=== PATIENT | female | born 1960 | race Caucasian/White ===

== ENCOUNTER → 2023-09-09 14:01 | Outpatient (REF) | payer OTHER, SELFPAY | LOC: MRI 3T 14:01 | PROVIDERS: ATTENDING PHYSICIAN Physician Assistant Surgical; FAMILY PHYSICIAN Nurse Practitioner Adult Health | DX: M25.562 Pain in left knee (principal) | CPT/HCPCS: 73721 ==

== ENCOUNTER 2023-09-27 16:34 | Emergency (ER) | payer OTHER, SELFPAY ==
[2023-09-27 16:41] VITALS: BP 165/101
[2023-09-27 17:12] VITALS: BP 138/88
[2023-09-27 17:15] LABS: % Basophils 0.3 % (0-2); % Eosinophils 0.7 % (0-6); % Immature Granulocytes 0.3 % (0-0.5); % Lymphocytes 16.2 % (20.5-51.1); % Monocytes 8.6 % (1.7-9.3); % Neutrophils 73.9 % (42.2-75.2); Absolute Eosinophils 0.1 10^3/uL (0-0.7); Absolute Lymphocytes 1.9 10^3/uL (1.2-3.4); Absolute Neutrophils 8.7 10^3/uL (1.4-6.5); Hemoglobin 12.2 g/dL (12.0-16.0); Mean Corp Hgb Conc. 32.1 g/dL (33.0-37.0); Mean Corpuscular Hgb 27.3 pg (27.0-31.0); Mean Platelet Volume 8.9 fL (7.4-10.4); Nucleated Red Blood Cells % 0 %; Platelet Count 185 10^3/uL (130-400); Red Blood Cell Count 4.47 10^6/uL (4.20-5.40); Red Cell Dist. Width 16.2 % (11.5-14.5); White Blood Cell Count 11.7 10^3/uL (4.8-10.8)
[2023-09-27 17:24] LABS: ALT (SGPT) 26 U/L (0-35); AST (SGOT) 26 U/L (14-36); Albumin 4.2 g/dl (3.5-5.0); Blood Urea Nitrogen 12 mg/dl (7-17); Calcium 9.1 mg/dl (8.4-10.2); Carbon Dioxide 23 mmol/L (22-30); Chloride 102 mmol/L (98-107); Glucose 133 mg/dl (70-99); Potassium 3.8 mmol/L (3.5-5.1); Sodium 132 mmol/L (135-145); Total Bilirubin 0.9 mg/dl (0.2-1.3); Total Protein 6.9 g/dl (6.3-8.2); eGFR > 60.00
--- NOTE | 2023-09-27 17:36 | ED.GENMED ---
History of Present Illness
General
Chief Complaint: Chest Pain
Time Seen by Provider: 09/27/23 17:25
Travel History
Have you had any contact with someone who has COVID-19?: No
Do you have any symptoms of coronavirus? Fever > 100 degrees, chills, cough, shortness of breath, sore throat, loss of taste or smell, muscle aches, or headache?: No
History of Present Illness
History of Present Illness:
62-year-old female with history of A-fib not on Eliquis presents to the emergency department for evaluation of left-sided scapular and low thoracic back pain beginning yesterday when she woke up from a nap. Pain is worse when supine or when taking
a deep breath. She denies any recent fevers, chills, sweats, coughing, nausea, vomiting, or diarrhea. She was seen by her primary care physician and given 324 mg of aspirin before being referred to the emergency department. Has no prior history
of coronary artery disease but does have a strong family history of this. Non-smoker. Recently returned from a flight to [place]. Of note the patient is also currently wearing a left knee brace for meniscal injury.
Past History
Past History
ED Past Medical History: Negative Asthma, CAD or HTN
Review of Systems
Review of Systems
Allergies reviewed?: Yes
All Other Systems: ROS reviewed and negative except as documented in HPI and ROS
Phy Exam
Physical Exam
Physical Exam:
GEN: Well appearing, NAD, WDWN
Eyes: PERRLA, EOMs intact, no scleral icterus
HENT: NCAT, oral mucosa moist, no JVD, no cervical adenopathy.
Lungs: CTAB, no wheezes, rales, rhonchi, normal chest wall excursion
Cardiac: Tachycardic, regular, no M/R/G, no peripheral edema. Radial pulses 2+ bilat
Abdomen: S, NT, ND, NABS, no masses or hepatosplenomegaly
Neuro: AO x 3
MSK: No gross deformity or ecchymosis. No edema. No digital clubbing
Skin: No rashes, petechiae. Normal color, no pallor or jaundice.
Psych: Calm, cooperative, proper hygiene
Scores
Heart Score for Chest Pain Patients
STEMI patient?: Not applicable
PE Low Risk Score
Hemodynamically unstable?: No
Thrombolysis or embolectomy needed?: No
Active bleeding or high risk for bleeding?: No
>24hrs on supplemental O2 required to maintain SaO2 >90%?: No
PE diagnosed while on anticoagulation?: No
Severe pain needing IV medication required for >24 hours?: No
Medical or social reason for admission >24 hours?: No
Creatinine clearance < 30 mL/min by Cockcroft-Gault?: No
Severe liver impairment?: No
?: No
Documented hx of heparin-induced thrombocytopenia (HIT)?: No
High risk features on CT (or pulmonary angiogram/MRA)(confirm with echo if features seen)?: No
High risk features on echo, if performed?: No
High risk features on laboratory testing?: No
High risk features on lower extremity US, if performed?: No
High risk features on ECG (confirm with echo if features seen)?: No
Recommendations: Patient is considered low risk
Course
Orders/Labs/Results
Orders:
Orders
09/27/23 16:43
Electrocardiogram (*1) Urgent
Reason for Study: Chest Pain
EKG- Treatment ONCE
09/27/23 16:52
Complete Blood Count/With Diff Urgent
Comprehensive Metabolic Panel Urgent
Troponin I Urgent
09/27/23 17:33
CT Chest Pe Study Urgent
Comment:
Reason For Exam: pleuritic back/chest pain, tachycardia
09/27/23 17:54
HYDROmorphone [Dilaudid] 0.5 mg IV NOW STA
09/27/23 19:15
Apixaban [Eliquis] 10 mg PO NOW STA
09/27/23 19:55
Oxycodone [Roxicodone] 5 mg PO NOW STA
09/28/23 00:00
Apixaban [Eliquis] 10 mg PO BID
Abnormal Lab Results
09/27/23
16:52
WBC 11.7 H 10^3/uL
(4.8-10.8)
MCHC 32.1 L g/dL
(33.0-37.0)
RDW 16.2 H %
(11.5-14.5)
Absolute Neuts (auto) 8.7 H 10^3/uL
(1.4-6.5)
Absolute Monos (auto) 1.0 H 10^3/uL
(0.1-0.6)
Lymphocytes % 16.2 L %
(20.5-51.1)
Sodium 132 L mmol/L
(135-145)
Glucose 133 H mg/dl
(70-99)
09/27/23 16:52
09/27/23 16:52
Vital Signs
Initial and Last Documented VS:
Initial Vital Signs
Temp Pulse Resp BP Pulse Ox
98.3 F 115 18 165/101 95
09/27/23 16:41 09/27/23 16:41 09/27/23 16:41 09/27/23 16:41 09/27/23 16:41
Last Documented Vital Signs
Temp Pulse Resp BP Pulse Ox
98.3 F 104 18 131/78 96
09/27/23 16:41 09/27/23 20:00 09/27/23 20:00 09/27/23 20:00 09/27/23 19:45
MDM/Problems Addressed
MDM/Problems Addressed:
Patient identified to have a distal subsegmental pulmonary embolism with associated pulmonary infarct which is likely driving her pain. Although she is mildly tachycardic, she has normal oxygen saturations and is otherwise hemodynamically stable
and there is no evidence for heart strain on CT. Ultimately she is low risk for complications and is suitable for outpatient management. 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
there is no indication for alternative anticoagulant management. Patient was started on Eliquis promptly in the emergency department and will discharge on therapeutic Eliquis. Pulmonology follow-up within 5 to 7 days advised. No clinical concern
for cardio vascular etiology
Comment
Comment:
EKG independently interpreted by me shows a sinus tachycardia at a rate of 114, ST depressions noted in 1 and aVL suggesting LVH, QTc of 432
*Critical Care Note
Total Time (30-74mins, 75-104mins- exclusive of procedures): Not Applicable
ED Attending Note
-
Portions of this chart may have been created with voice recognition software.� Occasional wrong word or��sound alike� substitutions may have occurred due to the inherent limitations of voice recognition software.
Discharge Plan
Departure
Patient Disposition: Home (Routine Discharge)
Date of Disposition: 09/27/23
Time of Disposition: 19:19
Patient with high blood pressure during this ER visit?: No
Discharge Problem:
Pulmonary embolism
Instructions: ED Low Risk PE
Prescriptions:
New
Eliquis 5 mg tablet
5 mg PO BID Qty: 68 0RF
Rx Instructions:
10mg PO bid for 11 doses, then 5mg PO bid thereafter
Eliquis 5 mg tablet
10 mg PO BID Qty: 4 0RF
oxycodone 5 mg tablet
5 mg PO TID PRN (Reason: Pain) Qty: 15 0RF
No Action
levothyroxine [Synthroid] 125 MCG tablet
125 mcg PO DAILY
Calcium 500 + Vitamin D Tablet
2 tab PO DAILY
Centrum With Iron
1 cap PO DAILY
[place]-3 Fatty Acids/Fish Oil
Patient Comments:
pt unsure of dose
Vitamin For Liver
Patient Comments:
pt unsure of name and dose. Pt takes for blood disorder that causes liver damage
oxycodone-acetaminophen 5 MG/325 MG tablet
1 tab PO Q4HPRN PRN (Reason: pain) Qty: 20 0RF
hydrocodone-acetaminophen 5-325 mg tablet
1 tab PO Q8H PRN (Reason: Pain) Qty: 10 0RF
Referrals:
Amish Laurent MD [Active] - Call in 1-3 days for appt
Charlotte Rivera CRNP [Family Provider] -
Activity Restrictions/Additional Instructions:
You were given the first dose of Eliquis in the ER, and two further doses to take home to prevent pharmacy interruptions
You will take 10mg twice daily through the morning of 10/03; the evening dose on 10/03 will be 5mg
You will then take 5mg twice daily until discontinued by your primary doctor or pulmonology
Follow up with pulmonology in 5-7 days
Interventions
Interventions:
*Risk Screen - Suicide Last Done: 09/27/23 16:41
*General Assessment Last Done: 09/27/23 16:41
*Neglect/Abuse Screening Last Done: 09/27/23 16:41
ED- Fall Risk Assessment Last Done: 09/27/23 20:26
*ED COVID-19 Vaccine History Last Done: 09/27/23 16:41
*Nursing Disposition Last Done: 09/27/23 20:26
ED- Cardiac Assessment Last Done: 09/27/23 17:48
Discharge Date and Time
Discharge Date/Time: 09/27/23 20:26
Print Language: INDONESIAN
[2023-09-27 17:42] LABS: Troponin I < 0.012 ng/ml
[2023-09-27 17:57] LABS: Alkaline Phosphatase 62 U/L (38-126)
[2023-09-27 18:29] VITALS: BP 148/78
[2023-09-27 19:00] VITALS: BP 130/73
[2023-09-27] MEDS: ELIQUIS 10 MG PO (19:59)
[2023-09-27] MEDS: ROXICODONE 5 MG PO (19:59)
[2023-09-27 20:00] VITALS: BP 131/78
== END 2023-09-27 20:26 | disposition home or self-care (01) ==
LOC: EMR 16:34
PROVIDERS: EMERGENCY PHYSICIAN Emergency Medicine; FAMILY PHYSICIAN Nurse Practitioner Adult Health
DX: I26.99 Other pulmonary embolism without acute cor pulmonale (principal); I48.91 Unspecified atrial fibrillation; Z88.0 Allergy status to penicillin
CPT/HCPCS: 99285; 71275; 80053; 84484; 85025; 93005; Q9967

== ENCOUNTER 2023-10-05 07:20 | Outpatient (RCR) | payer OTHER, SELFPAY | END 2023-10-05 23:59 | disposition home or self-care (01) | LOC: RPT 07:20 | PROVIDERS: ATTENDING PHYSICIAN Physician Assistant Surgical; FAMILY PHYSICIAN Nurse Practitioner Adult Health | DX: M17.12 Unilateral primary osteoarthritis, left knee (principal); S83.242D Other tear of medial meniscus, current injury, left knee, subsequent encounter; X58.XXXD Exposure to other specified factors, subsequent encounter; Z73.6 Limitation of activities due to disability | CPT/HCPCS: 97110; 97162 ==

== ENCOUNTER → 2023-11-25 08:19 | Outpatient (REF) | payer OTHER, SELFPAY | LOC: RAD 08:19 | PROVIDERS: ATTENDING PHYSICIAN Nurse Practitioner Adult Health | DX: I26.93 Single subsegmental thrombotic pulmonary embolism without acute cor pulmonale (principal); Z79.01 Long term (current) use of anticoagulants | CPT/HCPCS: 93970 ==

== ENCOUNTER → 2024-02-28 14:20 | Outpatient (REF) | payer MEDICARE, SELFPAY | LOC: WDC 14:20 | PROVIDERS: ATTENDING PHYSICIAN Obstetrics & Gynecology Gynecology; FAMILY PHYSICIAN Nurse Practitioner Adult Health | DX: Z12.31 Encounter for screening mammogram for malignant neoplasm of breast (principal) | CPT/HCPCS: 77063; 77067 ==

== ENCOUNTER → 2025-02-28 14:40 | Outpatient (REF) | payer MEDICARE, SELFPAY | LOC: WDC 14:40 | PROVIDERS: ATTENDING PHYSICIAN Family Medicine | DX: Z12.31 Encounter for screening mammogram for malignant neoplasm of breast (principal) | CPT/HCPCS: 77063; 77067 ==

== ENCOUNTER → 2025-03-23 15:16 | Outpatient (REF) | payer MEDICARE, SELFPAY | LOC: RAD 15:16 | PROVIDERS: ATTENDING PHYSICIAN Family Medicine | DX: R06.09 Other forms of dyspnea (principal); J20.9 Acute bronchitis, unspecified | CPT/HCPCS: 71046 ==

== ENCOUNTER → 2025-03-27 09:15 | Outpatient (REF) | payer MEDICARE, SELFPAY | LOC: RCS 09:15 | PROVIDERS: ATTENDING PHYSICIAN Family Medicine | DX: I47.10 Supraventricular tachycardia, unspecified (principal); R06.09 Other forms of dyspnea | CPT/HCPCS: 93225; 93226 ==